=== PATIENT | female | born 1975 | race Asian ===

== ENCOUNTER 2024-02-23 20:16 | Emergency (ER) | payer BC ==
[~2024-02-23] VITALS: Ht 165.1 cm; Wt 90.0 kg
[2024-02-23 20:22] VITALS: TEMP 97.8
[2024-02-23 21:10] LABS: URINE APPEARANCE CLEAR (CLEAR/HAZY); URINE BLOOD NEGATIVE (NEGATIVE); URINE COLOR YELLOW (YELLOW); URINE GLUCOSE NEGATIVE (NEGATIVE); URINE KETONE NEGATIVE (NEGATIVE); URINE NITRATE NEGATIVE (NEGATIVE); URINE PROTEIN(semi-quant) NEGATIVE (NEGATIVE); URINE UROBILINOGEN 0.2 E.U/dL (0.2-1.0)
[2024-02-23 22:17] LABS: COLLECTION METHOD CLEAN CATCH
[2024-02-23] MEDS ORDERED: metroNIDAZOLE 250 MG TAB PO ONE (22:45)
[2024-02-23] MEDS ORDERED: FLAGYL500 MG PO (22:45)
[2024-02-23 23:01] VITALS: BP 133/77; PULSE 84
== END 2024-02-23 23:01 | disposition home or self-care (01) ==
LOC: COL.ER 20:16
PROVIDERS: Nurse Practitioner Primary Care
DX: N76.0 Acute vaginitis (principal)